=== PATIENT | male | born 1970 | race Caucasian/White ===

== ENCOUNTER 2023-03-29 21:52 | Inpatient (IN) | payer OTHER ==
[2023-03-29 22:07] VITALS: BMI 18.2
[2023-03-29 23:26] LABS: VENOUS BASE EXCESS 3.1 mmol/L (-2-2); VENOUS O2 SATURATION 73.2 % (70-80); VENOUS PCO2 49.3 mmHg (38-52); VENOUS PH 7.388 (7.310-7.410)
[2023-03-29 23:27] LABS: BASO % 0.5 % (0-2.0); EOS % 2.7 % (0-4.5); HEMATOCRIT 30.3 % (35.4-49); HEMOGLOBIN 9.6 GM/dL (11.7-16.9); LYMPH % 15.9 % (8-40); MCH 28.4 pg (25.7-33.7); MCHC 31.7 g/dl (32.0-35.9); MEAN CELL VOLUME 89.4 fl (80-96); MEAN PLT VOLUME 6.8 fl (7.5-11.1); NEUT % 73.9 % (42.8-82.8); PLATELET COUNT 329 10^3/uL (134-434); RBC 3.39 M/mm3 (4.00-5.60); RDW 15.7 % (11.9-15.9); WHITE BLOOD COUNT 11.7 K/mm3 (4.0-10.0)
[2023-03-29 23:36] LABS: INR 1.24 (0.83-1.09); PROTHROMBIN TIME (PATIENT) 14.3 SEC (9.7-13.0)
[2023-03-29 23:39] LABS: ACTIVATED PTT 38.5 SECONDS (25.2-36.5)
[2023-03-29 23:45] LABS: CHLORIDE 96 mmol/L (98-107); POTASSIUM 3.7 mmol/L (3.5-5.1); SODIUM 134 mmol/L (136-145)
[2023-03-29 23:48] LABS: ALBUMIN 2.2 g/dl (3.4-5.0); ANION GAP 10 MMOL/L (8-16); CO2 28 mmol/L (21-32); GLUCOSE,RANDOM 93 mg/dL (74-106)
[2023-03-29 23:50] LABS: MAGNESIUM 3.4 mg/dL (1.8-2.4); SGPT/ALT 67 U/L (13-61)
[2023-03-29 23:51] LABS: CREATININE 5.2 mg/dL (0.55-1.3); PHOSPHOROUS 3.5 mg/dL (2.5-4.9); SGOT/AST 38 U/L (15-37)
[2023-03-29 23:52] LABS: BILIRUBIN,TOTAL 0.4 mg/dL (0.2-1); TOT PROT 7.5 g/dl (6.4-8.2)
[2023-03-29 23:54] LABS: ALK PHOS 216 U/L (45-117)
[2023-03-30 00:03] LABS: BLOOD UREA NITROGEN 129.5 mg/dL (7-18)
[2023-03-30] MEDS ORDERED: SODIUM HYPOCHLORITE 0.5% 473 ML- BULK BOTTLE TP PRN (03:32)
[2023-03-30] MEDS ORDERED: MAGNESIUM HYDROX 2400MG/30ML ORAL SUSPENSION 30 ML CUP PEG PRN (03:32)
[2023-03-30] MEDS ORDERED: BISACODYL 10 MG SUPP.RECT PR PRN (03:32)
[2023-03-30] MEDS ORDERED: SILVER SULFADIAZINE 1% TOP CREAM 50 GM JAR TP PRN (03:32)
[2023-03-30] MEDS ORDERED: ACETAMINOPHEN 650 MG/20.3 ML ORAL SOLUTION (CUPS) PEG PRN (04:16)
[2023-03-30] MEDS: hydrALAZINE HCL 25 MG TABLET (FP) GT SCH ×3 (06:39→22:12)
[2023-03-30 08:27] LABS: BASO % 0.5 % (0-2.0); EOS % 2.3 % (0-4.5); HEMATOCRIT 30.8 % (35.4-49); HEMOGLOBIN 9.8 GM/dL (11.7-16.9); LYMPH % 17.6 % (8-40); MCH 28.5 pg (25.7-33.7); MCHC 31.9 g/dl (32.0-35.9); MEAN CELL VOLUME 89.5 fl (80-96); MONO % 7.9 % (3.8-10.2); NEUT % 71.7 % (42.8-82.8); PLATELET COUNT 326 10^3/uL (134-434); RBC 3.44 M/mm3 (4.00-5.60); RDW 15.6 % (11.9-15.9); WHITE BLOOD COUNT 11.3 K/mm3 (4.0-10.0)
[2023-03-30 08:47] LABS: CHLORIDE 98 mmol/L (98-107); POTASSIUM 3.8 mmol/L (3.5-5.1); SODIUM 136 mmol/L (136-145)
[2023-03-30 08:50] LABS: ALBUMIN 2.1 g/dl (3.4-5.0); ANION GAP 11 MMOL/L (8-16); CO2 26 mmol/L (21-32); GLUCOSE,RANDOM 83 mg/dL (74-106)
[2023-03-30 08:51] LABS: MAGNESIUM 3.5 mg/dL (1.8-2.4)
[2023-03-30 08:53] LABS: CREATININE 5.6 mg/dL (0.55-1.3); PHOSPHOROUS 3.9 mg/dL (2.5-4.9); SGPT/ALT 56 U/L (13-61)
[2023-03-30 08:54] LABS: SGOT/AST 25 U/L (15-37)
[2023-03-30 08:55] LABS: BILIRUBIN,TOTAL 0.5 mg/dL (0.2-1); TOT PROT 7.2 g/dl (6.4-8.2)
[2023-03-30 08:57] LABS: ALK PHOS 172 U/L (45-117); BLOOD UREA NITROGEN 139.5 mg/dL (7-18)
[2023-03-30] MEDS: ZINC SULFATE 220 MG CAPSULE (FP) GT SCH ×4 (09:51→22:11)
[2023-03-30] MEDS: CARVEDILOL 25 MG TABLET (FP) GT SCH ×2 (09:51→22:11)
[2023-03-30] MEDS: ARTIFICIAL TEARS (POLYVINYL ALCOHOL) OPTH DROPS OU SCH ×2 (09:51→22:12)
[2023-03-30] MEDS: ISOSORBIDE DINITRATE 10 MG TABLET GT SCH ×3 (09:51→17:27)
[2023-03-30] MEDS: COLLAGENASE CLOSTRIDIUM HIST. 30 GRAMS TUBE TP SCH (09:52)
[2023-03-30] MEDS: FERROUS SO4 300 MG/5 ML ORAL SOLN UNIT DOSE CUPS PEG SCH (12:03)
[2023-03-30 12:59] LABS: ERYTHROCYTE SEDIMENTATION RATE 107 mm/hr (0-20)
[2023-03-30] MEDS ORDERED: SODIUM CHLORIDE 250 ML IV PRN (13:14)
[2023-03-30] MEDS: FAMOTIDINE 40 MG/5 ML ORAL SUSPENSION PEG SCH (13:14)
[2023-03-30] MEDS: ALTEPLASE (CATHFLO) 2 MG/2 ML VIAL NR ONE ×2 (13:30→13:35)
[2023-03-30] MEDS: ASCORBIC ACID 250 MG TABLET (FP) PEG SCH (22:11)
[2023-03-31] MEDS: hydrALAZINE HCL 25 MG TABLET (FP) GT SCH ×3 (05:50→21:05)
[2023-03-31 07:39] LABS: HEMATOCRIT 29.5 % (35.4-49); HEMOGLOBIN 9.9 GM/dL (11.7-16.9); MCH 30.3 pg (25.7-33.7); MCHC 33.5 g/dl (32.0-35.9); MEAN CELL VOLUME 90.4 fl (80-96); MEAN PLT VOLUME 7.3 fl (7.5-11.1); PLATELET COUNT 329 10^3/uL (134-434); RBC 3.26 M/mm3 (4.00-5.60); RDW 15.8 % (11.9-15.9); WHITE BLOOD COUNT 10.7 K/mm3 (4.0-10.0)
[2023-03-31 07:58] LABS: POTASSIUM 3.5 mmol/L (3.5-5.1)
[2023-03-31 08:07] LABS: MAGNESIUM 2.7 mg/dL (1.8-2.4)
[2023-03-31 08:10] LABS: CREATININE 3.6 mg/dL (0.55-1.3); PHOSPHOROUS 2.8 mg/dL (2.5-4.9)
[2023-03-31 08:15] LABS: BILIRUBIN,TOTAL 0.4 mg/dL (0.2-1); BLOOD UREA NITROGEN 67.3 mg/dL (7-18); CALCIUM 9.8 mg/dL (8.5-10.1)
[2023-03-31] MEDS ORDERED: EPOETIN ALFA-EPBX 3,000 UNIT/ML VIAL IVPUSH ONE (09:00)
[2023-03-31] MEDS: ISOSORBIDE DINITRATE 10 MG TABLET GT SCH ×3 (09:30→17:52)
[2023-03-31] MEDS: ZINC SULFATE 220 MG CAPSULE (FP) GT SCH ×4 (09:30→21:07)
[2023-03-31] MEDS: FAMOTIDINE 40 MG/5 ML ORAL SUSPENSION PEG SCH (09:30)
[2023-03-31] MEDS: CARVEDILOL 25 MG TABLET (FP) GT SCH ×2 (09:30→21:05)
[2023-03-31] MEDS: FERROUS SO4 300 MG/5 ML ORAL SOLN UNIT DOSE CUPS PEG SCH (09:31)
[2023-03-31] MEDS: ARTIFICIAL TEARS (POLYVINYL ALCOHOL) OPTH DROPS OU SCH ×2 (09:37→21:09)
[2023-03-31] MEDS ORDERED: SODIUM CHLORIDE 250 ML IV PRN (11:33)
[2023-03-31] MEDS: COLLAGENASE CLOSTRIDIUM HIST. 30 GRAMS TUBE TP SCH (12:07)
[2023-03-31] MEDS: ASCORBIC ACID 250 MG TABLET (FP) PEG SCH (21:08)
[2023-04-01] MEDS: hydrALAZINE HCL 25 MG TABLET (FP) GT SCH ×3 (05:53→22:19)
[2023-04-01 07:41] LABS: BASO % 0.6 % (0-2.0); EOS % 3.5 % (0-4.5); HEMATOCRIT 27.3 % (35.4-49); INR 1.27 (0.83-1.09); MCHC 33.1 g/dl (32.0-35.9); MEAN CELL VOLUME 90.6 fl (80-96); MEAN PLT VOLUME 7.5 fl (7.5-11.1); MONO % 6.7 % (3.8-10.2); NEUT % 73.2 % (42.8-82.8); PLATELET COUNT 337 10^3/uL (134-434); PROTHROMBIN TIME (PATIENT) 14.7 SEC (9.7-13.0); RBC 3.01 M/mm3 (4.00-5.60); RDW 15.8 % (11.9-15.9); WHITE BLOOD COUNT 11.4 K/mm3 (4.0-10.0)
[2023-04-01 07:44] LABS: ACTIVATED PTT 36.2 SECONDS (25.2-36.5)
[2023-04-01 07:53] LABS: POTASSIUM 3.8 mmol/L (3.5-5.1)
[2023-04-01 08:00] LABS: CALCIUM 10.2 mg/dL (8.5-10.1)
[2023-04-01 08:01] LABS: BLOOD UREA NITROGEN 91.4 mg/dL (7-18)
[2023-04-01 08:04] LABS: CREATININE 4.6 mg/dL (0.55-1.3)
[2023-04-01 08:05] LABS: TOT PROT 6.8 g/dl (6.4-8.2)
[2023-04-01 08:06] LABS: BILIRUBIN,TOTAL 0.3 mg/dL (0.2-1)
[2023-04-01] MEDS: ISOSORBIDE DINITRATE 10 MG TABLET GT SCH ×3 (08:24→18:21)
[2023-04-01] MEDS: ZINC SULFATE 220 MG CAPSULE (FP) GT SCH ×5 (10:00→22:19)
[2023-04-01] MEDS: FAMOTIDINE 40 MG/5 ML ORAL SUSPENSION PEG SCH (12:45)
[2023-04-01] MEDS: CARVEDILOL 25 MG TABLET (FP) GT SCH ×2 (12:46→22:19)
[2023-04-01] MEDS: FERROUS SO4 300 MG/5 ML ORAL SOLN UNIT DOSE CUPS PEG SCH (12:49)
[2023-04-01] MEDS: ARTIFICIAL TEARS (POLYVINYL ALCOHOL) OPTH DROPS OU SCH ×2 (12:52→22:20)
[2023-04-01] MEDS: PATIENT'S OWN MEDICATION (NON-FORMULARY) (Calcium Alginate [Kendall] 1 EACH Bandage) TP SCH ×3 (13:53→13:54)
[2023-04-01] MEDS: COLLAGENASE CLOSTRIDIUM HIST. 30 GRAMS TUBE TP SCH (17:53)
[2023-04-01] MEDS: ASCORBIC ACID 250 MG TABLET (FP) PEG SCH (22:19)
[2023-04-02] MEDS: hydrALAZINE HCL 25 MG TABLET (FP) GT SCH ×3 (06:12→21:39)
[2023-04-02 08:41] LABS: HEMATOCRIT 31.2 % (35.4-49); HEMOGLOBIN 9.8 GM/dL (11.7-16.9); MCH 28.5 pg (25.7-33.7); MCHC 31.5 g/dl (32.0-35.9); MEAN CELL VOLUME 90.7 fl (80-96); MEAN PLT VOLUME 6.8 fl (7.5-11.1); PLATELET COUNT 350 10^3/uL (134-434); RBC 3.44 M/mm3 (4.00-5.60); RDW 16.3 % (11.9-15.9); WHITE BLOOD COUNT 13.1 K/mm3 (4.0-10.0)
[2023-04-02 08:59] LABS: POTASSIUM 3.6 mmol/L (3.5-5.1)
[2023-04-02 09:04] LABS: CALCIUM 9.4 mg/dL (8.5-10.1)
[2023-04-02 09:05] LABS: ALBUMIN 2.2 g/dl (3.4-5.0); MAGNESIUM 2.6 mg/dL (1.8-2.4)
[2023-04-02 09:08] LABS: BILIRUBIN,TOTAL 0.3 mg/dL (0.2-1); CREATININE 3.3 mg/dL (0.55-1.3); PHOSPHOROUS 2.8 mg/dL (2.5-4.9); TOT PROT 7.3 g/dl (6.4-8.2)
[2023-04-02 09:15] LABS: BLOOD UREA NITROGEN 52.2 mg/dL (7-18)
[2023-04-02] MEDS ORDERED: GLYCOPYRROLATE 0.2 MG/1 ML VIAL ONE (09:36)
[2023-04-02] MEDS ORDERED: FAMOTIDINE 20 MG/2.5 ML ORAL LIQUID PEG SCH (10:00)
[2023-04-02] MEDS ORDERED: ONDANSETRON 4 MG/2 ML VIAL IVPUSH PRN ×2 (10:11→10:19)
[2023-04-02] MEDS ORDERED: MAGNESIUM HYDROX 2400MG/30ML ORAL SUSPENSION 30 ML CUP PEG PRN (10:19)
[2023-04-02] MEDS ORDERED: SODIUM HYPOCHLORITE 0.5% 473 ML- BULK BOTTLE TP PRN (10:19)
[2023-04-02] MEDS ORDERED: ACETAMINOPHEN 650 MG/20.3 ML ORAL SOLUTION (CUPS) PEG PRN (10:19)
[2023-04-02] MEDS ORDERED: BISACODYL 10 MG SUPP.RECT PR PRN (10:19)
[2023-04-02] MEDS ORDERED: SILVER SULFADIAZINE 1% TOP CREAM 50 GM JAR TP PRN (10:19)
[2023-04-02] MEDS: ARTIFICIAL TEARS (POLYVINYL ALCOHOL) OPTH DROPS OU SCH ×2 (11:58→21:47)
[2023-04-02] MEDS: ISOSORBIDE DINITRATE 10 MG TABLET GT SCH ×3 (11:58→17:01)
[2023-04-02] MEDS: CARVEDILOL 25 MG TABLET (FP) GT SCH ×2 (11:59→21:39)
[2023-04-02] MEDS: COLLAGENASE CLOSTRIDIUM HIST. 30 GRAMS TUBE TP SCH (11:59)
[2023-04-02] MEDS: ZINC SULFATE 220 MG CAPSULE (FP) GT SCH ×4 (11:59→21:38)
[2023-04-02] MEDS: FERROUS SO4 300 MG/5 ML ORAL SOLN UNIT DOSE CUPS PEG SCH (11:59)
[2023-04-02] MEDS: AMINO ACIDS/PROTEIN HYDROLYS 30 ML LIQUID.PKT PO SCH (17:01)
[2023-04-02] MEDS ORDERED: SODIUM CHLORIDE 250 ML IV PRN (21:41)
[2023-04-02] MEDS ORDERED: ASCORBIC ACID 250 MG TABLET (FP) PEG SCH (22:00)
[2023-04-03] MEDS: hydrALAZINE HCL 25 MG TABLET (FP) GT SCH ×3 (06:17→22:09)
[2023-04-03 06:31] LABS: HEMATOCRIT 28.8 % (35.4-49); HEMOGLOBIN 9.4 GM/dL (11.7-16.9); MCH 29.3 pg (25.7-33.7); MCHC 32.5 g/dl (32.0-35.9); MEAN CELL VOLUME 90.2 fl (80-96); MEAN PLT VOLUME 7.1 fl (7.5-11.1); PLATELET COUNT 373 10^3/uL (134-434); RBC 3.19 M/mm3 (4.00-5.60); WHITE BLOOD COUNT 12.9 K/mm3 (4.0-10.0)
[2023-04-03 06:41] LABS: POTASSIUM 3.9 mmol/L (3.5-5.1)
[2023-04-03 06:48] LABS: ALBUMIN 2.1 g/dl (3.4-5.0); CALCIUM 9.7 mg/dL (8.5-10.1)
[2023-04-03 06:49] LABS: CREATININE 4.3 mg/dL (0.55-1.3); MAGNESIUM 2.8 mg/dL (1.8-2.4)
[2023-04-03 06:50] LABS: BILIRUBIN,TOTAL 0.4 mg/dL (0.2-1)
[2023-04-03 06:52] LABS: PHOSPHOROUS 4.1 mg/dL (2.5-4.9)
[2023-04-03 06:55] LABS: BLOOD UREA NITROGEN 79.6 mg/dL (7-18)
[2023-04-03] MEDS ORDERED: EPOETIN ALFA-EPBX 4,000 UNIT/ML VIAL SQ ONE (08:00)
[2023-04-03] MEDS ORDERED: FAMOTIDINE 20 MG/2.5 ML ORAL LIQUID PEG SCH (10:00)
[2023-04-03] MEDS ORDERED: FERROUS SO4 300 MG/5 ML ORAL SOLN UNIT DOSE CUPS PEG SCH (10:00)
[2023-04-03] MEDS ORDERED: COLLAGENASE CLOSTRIDIUM HIST. 30 GRAMS TUBE TP SCH ×2 (10:00)
[2023-04-03] MEDS: ISOSORBIDE DINITRATE 10 MG TABLET GT SCH ×3 (12:10→19:33)
[2023-04-03] MEDS: ARTIFICIAL TEARS (POLYVINYL ALCOHOL) OPTH DROPS OU SCH ×2 (12:10→22:11)
[2023-04-03] MEDS: AMINO ACIDS/PROTEIN HYDROLYS 30 ML LIQUID.PKT PO SCH ×2 (12:10→19:32)
[2023-04-03] MEDS: MULTIVIT-MINERALS ORAL LIQUID PO SCH (12:11)
[2023-04-03] MEDS: CARVEDILOL 25 MG TABLET (FP) GT SCH ×2 (12:11→22:09)
[2023-04-03] MEDS: ZINC SULFATE 220 MG CAPSULE (FP) GT SCH ×4 (12:12→22:09)
[2023-04-03] MEDS ORDERED: ALBUTEROL SO4 2.5/IPRATROPIUM 0.5 INH SOL 3 ML VIAL.NEB. NEB PRN (15:00)
[2023-04-03] MEDS ORDERED: ACETAMINOPHEN 650 MG/20.3 ML ORAL SOLUTION (CUPS) PEG PRN (19:39)
[2023-04-03] MEDS ORDERED: MAGNESIUM HYDROX 2400MG/30ML ORAL SUSPENSION 30 ML CUP PEG PRN (19:39)
[2023-04-03] MEDS ORDERED: BISACODYL 10 MG SUPP.RECT PR PRN (19:39)
[2023-04-03] MEDS ORDERED: SILVER SULFADIAZINE 1% TOP CREAM 50 GM JAR TP PRN (19:39)
[2023-04-04] MEDS: hydrALAZINE HCL 25 MG TABLET (FP) GT SCH ×3 (06:32→23:50)
[2023-04-04] MEDS: ISOSORBIDE DINITRATE 10 MG TABLET GT SCH ×3 (08:40→18:10)
[2023-04-04 08:54] LABS: HEMATOCRIT 29.3 % (35.4-49); HEMOGLOBIN 9.6 GM/dL (11.7-16.9); MCH 29.7 pg (25.7-33.7); MCHC 32.7 g/dl (32.0-35.9); MEAN CELL VOLUME 90.7 fl (80-96); MEAN PLT VOLUME 7.1 fl (7.5-11.1); PLATELET COUNT 369 10^3/uL (134-434); RBC 3.22 M/mm3 (4.00-5.60); RDW 15.8 % (11.9-15.9); WHITE BLOOD COUNT 20.1 K/mm3 (4.0-10.0)
[2023-04-04 09:19] LABS: POTASSIUM 3.7 mmol/L (3.5-5.1)
[2023-04-04] MEDS: FERROUS SO4 300 MG/5 ML ORAL SOLN UNIT DOSE CUPS PEG SCH (09:19)
[2023-04-04] MEDS: CARVEDILOL 25 MG TABLET (FP) GT SCH ×2 (09:19→23:50)
[2023-04-04] MEDS: AMINO ACIDS/PROTEIN HYDROLYS 30 ML LIQUID.PKT PO SCH (09:19)
[2023-04-04] MEDS: ZINC SULFATE 220 MG CAPSULE (FP) GT SCH ×4 (09:19→23:49)
[2023-04-04] MEDS: MULTIVIT-MINERALS ORAL LIQUID PO SCH (09:20)
[2023-04-04 09:24] LABS: CALCIUM 10.2 mg/dL (8.5-10.1)
[2023-04-04 09:25] LABS: ALBUMIN 2.1 g/dl (3.4-5.0); BLOOD UREA NITROGEN 63.9 mg/dL (7-18); MAGNESIUM 2.7 mg/dL (1.8-2.4)
[2023-04-04 09:28] LABS: CREATININE 3.5 mg/dL (0.55-1.3); PHOSPHOROUS 2.6 mg/dL (2.5-4.9)
[2023-04-04 09:29] LABS: BILIRUBIN,TOTAL 0.3 mg/dL (0.2-1)
[2023-04-04 09:30] LABS: TOT PROT 7.4 g/dl (6.4-8.2)
[2023-04-04] MEDS: FAMOTIDINE 20 MG/2.5 ML ORAL LIQUID PEG SCH (09:52)
[2023-04-04] MEDS: ARTIFICIAL TEARS (POLYVINYL ALCOHOL) OPTH DROPS OU SCH ×2 (09:54→23:51)
[2023-04-04] MEDS ORDERED: MULTIVIT-MINERALS ORAL LIQUID GT SCH (10:07)
[2023-04-04] MEDS: COLLAGENASE CLOSTRIDIUM HIST. 30 GRAMS TUBE TP SCH (10:56)
[2023-04-04] MEDS: CEFTRIAXONE 1 GM in DEXTROSE 5%-WATER - 50 ML IVPB SCH (13:57)
[2023-04-04 14:51] LABS: ERYTHROCYTE SEDIMENTATION RATE 105 mm/hr (0-20)
[2023-04-04] MEDS: VITAMIN B COMP W-C 1 EA TABLET (NEPHRO-VITE) PO SCH (18:28)
[2023-04-04] MEDS: AMINO ACIDS/PROTEIN HYDROLYS 30 ML LIQUID.PKT GT SCH (18:29)
[2023-04-05] MEDS: hydrALAZINE HCL 25 MG TABLET (FP) GT SCH ×3 (06:07→21:28)
[2023-04-05] MEDS: ISOSORBIDE DINITRATE 10 MG TABLET GT SCH ×3 (08:50→18:00)
[2023-04-05] MEDS: AMINO ACIDS/PROTEIN HYDROLYS 30 ML LIQUID.PKT GT SCH ×2 (08:50→18:00)
[2023-04-05] MEDS: VITAMIN B COMP W-C 1 EA TABLET (NEPHRO-VITE) PO SCH (09:02)
[2023-04-05] MEDS: CARVEDILOL 25 MG TABLET (FP) GT SCH ×2 (09:03→21:26)
[2023-04-05] MEDS: ZINC SULFATE 220 MG CAPSULE (FP) GT SCH ×4 (09:03→21:26)
[2023-04-05] MEDS: ARTIFICIAL TEARS (POLYVINYL ALCOHOL) OPTH DROPS OU SCH ×2 (09:03→21:25)
[2023-04-05] MEDS: FAMOTIDINE 20 MG/2.5 ML ORAL LIQUID PEG SCH (09:04)
[2023-04-05] MEDS: CEFTRIAXONE 1 GM in DEXTROSE 5%-WATER - 50 ML IVPB SCH (09:06)
[2023-04-05] MEDS ORDERED: SODIUM CHLORIDE 250 ML IV PRN ×2 (09:22→11:26)
[2023-04-05] MEDS: COLLAGENASE CLOSTRIDIUM HIST. 30 GRAMS TUBE TP SCH (09:26)
[2023-04-05] MEDS: FERROUS SO4 300 MG/5 ML ORAL SOLN UNIT DOSE CUPS PEG SCH (09:26)
[2023-04-05 09:49] LABS: HEMATOCRIT 28.5 % (35.4-49); HEMOGLOBIN 9.3 GM/dL (11.7-16.9); MCH 29.3 pg (25.7-33.7); MCHC 32.5 g/dl (32.0-35.9); MEAN CELL VOLUME 90.2 fl (80-96); MEAN PLT VOLUME 6.9 fl (7.5-11.1); PLATELET COUNT 378 10^3/uL (134-434); RBC 3.16 M/mm3 (4.00-5.60); RDW 15.9 % (11.9-15.9); WHITE BLOOD COUNT 16.9 K/mm3 (4.0-10.0)
[2023-04-05] MEDS ORDERED: LIDOCAINE HCL 1%, 10 MG/ML (10ML VIAL) MDV ONE (09:51)
[2023-04-05 09:52] LABS: INR 1.24 (0.83-1.09); PROTHROMBIN TIME (PATIENT) 14.3 SEC (9.7-13.0)
[2023-04-05] MEDS ORDERED: HEPARIN NA (PORCINE) 5,000 UNITS/ML 1ML VIAL ONE (10:01)
[2023-04-05 10:10] LABS: POTASSIUM 4.4 mmol/L (3.5-5.1)
[2023-04-05 10:17] LABS: ALBUMIN 2.1 g/dl (3.4-5.0); MAGNESIUM 3.2 mg/dL (1.8-2.4)
[2023-04-05 10:18] LABS: CREATININE 4.6 mg/dL (0.55-1.3)
[2023-04-05 10:20] LABS: BILIRUBIN,TOTAL 0.3 mg/dL (0.2-1); PHOSPHOROUS 3.8 mg/dL (2.5-4.9); TOT PROT 7.2 g/dl (6.4-8.2)
[2023-04-05 10:24] LABS: BLOOD UREA NITROGEN 92.6 mg/dL (7-18)
[2023-04-05] MEDS ORDERED: ONDANSETRON 4 MG/2 ML VIAL IVPUSH PRN ×2 (10:30→11:26)
[2023-04-05] MEDS ORDERED: SODIUM CHLORIDE 1,000 ML IV SCH (10:30)
[2023-04-05] MEDS ORDERED: HEPARIN NA (PORCINE) 5,000 UNITS/ML 1ML VIAL SQ ONE (10:38)
[2023-04-05] MEDS ORDERED: LIDOCAINE HCL 1%, 10 MG/ML (20ML VIAL) INF ONE (10:38)
[2023-04-05] MEDS ORDERED: LACTATED RINGERS SOLUTION 1,000 ML IV SCH ×2 (11:15→11:26)
[2023-04-05] MEDS ORDERED: ACETAMINOPHEN 650 MG/20.3 ML ORAL SOLUTION (CUPS) PEG PRN (11:26)
[2023-04-05] MEDS ORDERED: MAGNESIUM HYDROX 2400MG/30ML ORAL SUSPENSION 30 ML CUP PEG PRN (11:26)
[2023-04-05] MEDS ORDERED: BISACODYL 10 MG SUPP.RECT PR PRN (11:26)
[2023-04-05] MEDS ORDERED: ALBUTEROL SO4 2.5/IPRATROPIUM 0.5 INH SOL 3 ML VIAL.NEB. NEB PRN (11:26)
[2023-04-05] MEDS ORDERED: SILVER SULFADIAZINE 1% TOP CREAM 50 GM JAR TP PRN (11:26)
[2023-04-06] MEDS: hydrALAZINE HCL 25 MG TABLET (FP) GT SCH ×3 (06:06→22:06)
[2023-04-06] MEDS: SODIUM CHLORIDE 1,000 ML IV SCH ×2 (06:15→15:40)
[2023-04-06 09:01] LABS: HEMATOCRIT 27.5 % (35.4-49); MCH 29.5 pg (25.7-33.7); MCHC 32.7 g/dl (32.0-35.9); MEAN CELL VOLUME 90.1 fl (80-96); MEAN PLT VOLUME 7.3 fl (7.5-11.1); PLATELET COUNT 352 10^3/uL (134-434); RBC 3.05 M/mm3 (4.00-5.60); RDW 15.7 % (11.9-15.9); WHITE BLOOD COUNT 12.2 K/mm3 (4.0-10.0)
[2023-04-06] MEDS: AMINO ACIDS/PROTEIN HYDROLYS 30 ML LIQUID.PKT GT SCH ×2 (09:14→18:13)
[2023-04-06] MEDS: ZINC SULFATE 220 MG CAPSULE (FP) GT SCH ×4 (09:15→22:06)
[2023-04-06] MEDS: VITAMIN B COMP W-C 1 EA TABLET (NEPHRO-VITE) PO SCH (09:15)
[2023-04-06] MEDS: CARVEDILOL 25 MG TABLET (FP) GT SCH ×2 (09:15→22:06)
[2023-04-06 09:24] LABS: POTASSIUM 3.5 mmol/L (3.5-5.1)
[2023-04-06 09:43] LABS: ALBUMIN 2.2 g/dl (3.4-5.0)
[2023-04-06 09:44] LABS: MAGNESIUM 2.6 mg/dL (1.8-2.4)
[2023-04-06 09:46] LABS: BILIRUBIN,TOTAL 0.6 mg/dL (0.2-1); CREATININE 2.9 mg/dL (0.55-1.3); PHOSPHOROUS 3.3 mg/dL (2.5-4.9)
[2023-04-06 09:48] LABS: TOT PROT 6.9 g/dl (6.4-8.2)
[2023-04-06 09:51] LABS: BLOOD UREA NITROGEN 51.1 mg/dL (7-18)
[2023-04-06] MEDS ORDERED: CEFTRIAXONE 1 GM in DEXTROSE 5%-WATER - 50 ML IVPB SCH (10:00)
[2023-04-06] MEDS ORDERED: COLLAGENASE CLOSTRIDIUM HIST. 30 GRAMS TUBE TP SCH (10:00)
[2023-04-06] MEDS: FERROUS SO4 300 MG/5 ML ORAL SOLN UNIT DOSE CUPS PEG SCH (11:08)
[2023-04-06] MEDS: ISOSORBIDE DINITRATE 10 MG TABLET GT SCH ×3 (11:12→18:13)
[2023-04-06] MEDS: FAMOTIDINE 20 MG/2.5 ML ORAL LIQUID PEG SCH (11:13)
[2023-04-06] MEDS: COLLAGENASE CLOSTRIDIUM HIST. 30 GRAMS TUBE TP SCH (11:15)
[2023-04-06] MEDS: ARTIFICIAL TEARS (POLYVINYL ALCOHOL) OPTH DROPS OU SCH ×2 (11:25→22:09)
[2023-04-06] MEDS: MEROPENEM 500 MG in DEXTROSE 5%-WATER 100 ML IVPB SCH (15:42)
[2023-04-07] MEDS: MEROPENEM 500 MG in DEXTROSE 5%-WATER 100 ML IVPB SCH ×3 (00:23→23:49)
[2023-04-07] MEDS: hydrALAZINE HCL 25 MG TABLET (FP) GT SCH ×3 (05:53→22:58)
[2023-04-07] MEDS ORDERED: MEROPENEM 500 MG in DEXTROSE 5%-WATER 100 ML IVPB SCH (07:15)
[2023-04-07 10:00] LABS: HEMATOCRIT 27.1 % (35.4-49); HEMOGLOBIN 8.7 GM/dL (11.7-16.9); MCH 28.9 pg (25.7-33.7); MCHC 32.1 g/dl (32.0-35.9); MEAN CELL VOLUME 89.9 fl (80-96); MEAN PLT VOLUME 7.2 fl (7.5-11.1); PLATELET COUNT 334 10^3/uL (134-434); RBC 3.01 M/mm3 (4.00-5.60); RDW 15.6 % (11.9-15.9); WHITE BLOOD COUNT 12.7 K/mm3 (4.0-10.0)
[2023-04-07] MEDS: ISOSORBIDE DINITRATE 10 MG TABLET GT SCH ×3 (10:10→17:21)
[2023-04-07] MEDS: CARVEDILOL 25 MG TABLET (FP) GT SCH ×2 (10:10→22:58)
[2023-04-07] MEDS: AMINO ACIDS/PROTEIN HYDROLYS 30 ML LIQUID.PKT GT SCH ×2 (10:10→17:21)
[2023-04-07] MEDS: VITAMIN B COMP W-C 1 EA TABLET (NEPHRO-VITE) PO SCH (10:10)
[2023-04-07] MEDS: ZINC SULFATE 220 MG CAPSULE (FP) GT SCH ×4 (10:10→22:58)
[2023-04-07] MEDS: FERROUS SO4 300 MG/5 ML ORAL SOLN UNIT DOSE CUPS PEG SCH (10:11)
[2023-04-07] MEDS: ARTIFICIAL TEARS (POLYVINYL ALCOHOL) OPTH DROPS OU SCH ×2 (10:12→22:58)
[2023-04-07] MEDS: COLLAGENASE CLOSTRIDIUM HIST. 30 GRAMS TUBE TP SCH (10:14)
[2023-04-07] MEDS: FAMOTIDINE 20 MG/2.5 ML ORAL LIQUID PEG SCH (10:17)
[2023-04-07 10:22] LABS: POTASSIUM 3.8 mmol/L (3.5-5.1)
[2023-04-07 10:29] LABS: CALCIUM 9.8 mg/dL (8.5-10.1)
[2023-04-07 10:30] LABS: ALBUMIN 2.1 g/dl (3.4-5.0); MAGNESIUM 2.9 mg/dL (1.8-2.4); PHOSPHOROUS 4.8 mg/dL (2.5-4.9)
[2023-04-07 10:32] LABS: BILIRUBIN,TOTAL 0.3 mg/dL (0.2-1); CREATININE 3.9 mg/dL (0.55-1.3); TOT PROT 6.8 g/dl (6.4-8.2)
[2023-04-07 10:39] LABS: BLOOD UREA NITROGEN 78.3 mg/dL (7-18)
[2023-04-08] MEDS: hydrALAZINE HCL 25 MG TABLET (FP) GT SCH ×3 (06:05→23:04)
[2023-04-08] MEDS ORDERED: EPOETIN ALFA-EPBX 4,000 UNIT/ML VIAL SQ ONE (09:15)
[2023-04-08] MEDS ORDERED: SODIUM CHLORIDE 250 ML IV PRN (09:17)
[2023-04-08 09:59] LABS: POTASSIUM 3.7 mmol/L (3.5-5.1)
[2023-04-08 10:22] LABS: CALCIUM 10.2 mg/dL (8.5-10.1)
[2023-04-08 10:23] LABS: MAGNESIUM 3.3 mg/dL (1.8-2.4)
[2023-04-08 10:25] LABS: CREATININE 4.6 mg/dL (0.55-1.3); PHOSPHOROUS 5.6 mg/dL (2.5-4.9)
[2023-04-08 10:28] LABS: BILIRUBIN,TOTAL 0.6 mg/dL (0.2-1); TOT PROT 7.3 g/dl (6.4-8.2)
[2023-04-08] MEDS: ISOSORBIDE DINITRATE 10 MG TABLET GT SCH ×3 (13:04→17:09)
[2023-04-08] MEDS: FERROUS SO4 300 MG/5 ML ORAL SOLN UNIT DOSE CUPS PEG SCH (13:04)
[2023-04-08] MEDS: AMINO ACIDS/PROTEIN HYDROLYS 30 ML LIQUID.PKT GT SCH ×2 (13:05→17:08)
[2023-04-08] MEDS: CARVEDILOL 25 MG TABLET (FP) GT SCH ×2 (13:05→23:04)
[2023-04-08] MEDS: VITAMIN B COMP W-C 1 EA TABLET (NEPHRO-VITE) PO SCH (13:05)
[2023-04-08] MEDS: ZINC SULFATE 220 MG CAPSULE (FP) GT SCH ×4 (13:05→23:04)
[2023-04-08] MEDS: MEROPENEM 500 MG in DEXTROSE 5%-WATER 100 ML IVPB SCH ×4 (13:06→23:03)
[2023-04-08] MEDS: FAMOTIDINE 20 MG/2.5 ML ORAL LIQUID PEG SCH (13:06)
[2023-04-08] MEDS: COLLAGENASE CLOSTRIDIUM HIST. 30 GRAMS TUBE TP SCH (13:07)
[2023-04-08] MEDS: ARTIFICIAL TEARS (POLYVINYL ALCOHOL) OPTH DROPS OU SCH ×2 (13:08→23:05)
[2023-04-08 15:14] LABS: HIV INTERPRETATION NEGATIVE (NEGATIVE)
[2023-04-08] MEDS ORDERED: VANCOMYCIN 1 GM/200 ML PREMIX BAG (RESTRICTED TO ID ONLY) IVPB ONE (16:33)
[2023-04-08 17:29] LABS: HEMATOCRIT 28.3 % (35.4-49); HEMOGLOBIN 9.3 GM/dL (11.7-16.9); MCHC 32.7 g/dl (32.0-35.9); MEAN CELL VOLUME 88.7 fl (80-96); MEAN PLT VOLUME 7.8 fl (7.5-11.1); PLATELET COUNT 341 10^3/uL (134-434); RBC 3.19 M/mm3 (4.00-5.60); RDW 15.7 % (11.9-15.9); WHITE BLOOD COUNT 12.8 K/mm3 (4.0-10.0)
[2023-04-09] MEDS: hydrALAZINE HCL 25 MG TABLET (FP) GT SCH ×3 (06:11→22:43)
[2023-04-09] MEDS: ISOSORBIDE DINITRATE 10 MG TABLET GT SCH ×3 (07:58→17:33)
[2023-04-09 09:42] LABS: HEMATOCRIT 24.7 % (35.4-49); HEMOGLOBIN 8.1 GM/dL (11.7-16.9); MCH 29.1 pg (25.7-33.7); MCHC 32.8 g/dl (32.0-35.9); MEAN CELL VOLUME 88.5 fl (80-96); MEAN PLT VOLUME 7.1 fl (7.5-11.1); PLATELET COUNT 314 10^3/uL (134-434); RBC 2.79 M/mm3 (4.00-5.60); RDW 15.6 % (11.9-15.9); WHITE BLOOD COUNT 13.1 K/mm3 (4.0-10.0)
[2023-04-09 10:00] LABS: POTASSIUM 3.9 mmol/L (3.5-5.1)
[2023-04-09 10:03] LABS: CALCIUM 9.3 mg/dL (8.5-10.1)
[2023-04-09 10:04] LABS: MAGNESIUM 2.7 mg/dL (1.8-2.4)
[2023-04-09 10:06] LABS: CREATININE 3.2 mg/dL (0.55-1.3)
[2023-04-09 10:08] LABS: BILIRUBIN,TOTAL 0.4 mg/dL (0.2-1); TOT PROT 6.6 g/dl (6.4-8.2)
[2023-04-09] MEDS: COLLAGENASE CLOSTRIDIUM HIST. 30 GRAMS TUBE TP SCH (10:15)
[2023-04-09 10:18] LABS: BLOOD UREA NITROGEN 59.2 mg/dL (7-18)
[2023-04-09] MEDS: AMINO ACIDS/PROTEIN HYDROLYS 30 ML LIQUID.PKT GT SCH ×2 (10:49→17:32)
[2023-04-09] MEDS: ZINC SULFATE 220 MG CAPSULE (FP) GT SCH ×4 (10:53→22:43)
[2023-04-09] MEDS: VITAMIN B COMP W-C 1 EA TABLET (NEPHRO-VITE) PO SCH (10:54)
[2023-04-09] MEDS: FAMOTIDINE 20 MG/2.5 ML ORAL LIQUID PEG SCH (10:54)
[2023-04-09] MEDS: FERROUS SO4 300 MG/5 ML ORAL SOLN UNIT DOSE CUPS PEG SCH (10:54)
[2023-04-09] MEDS: CARVEDILOL 25 MG TABLET (FP) GT SCH ×2 (10:54→22:43)
[2023-04-09] MEDS: ARTIFICIAL TEARS (POLYVINYL ALCOHOL) OPTH DROPS OU SCH ×2 (10:55→22:45)
[2023-04-09] MEDS: MEROPENEM 500 MG in DEXTROSE 5%-WATER 100 ML IVPB SCH (11:08)
[2023-04-10] MEDS: hydrALAZINE HCL 25 MG TABLET (FP) GT SCH ×3 (06:58→23:30)
[2023-04-10 08:08] LABS: HEMATOCRIT 26.7 % (35.4-49); HEMOGLOBIN 8.5 GM/dL (11.7-16.9); MCH 28.5 pg (25.7-33.7); MCHC 31.8 g/dl (32.0-35.9); MEAN CELL VOLUME 89.7 fl (80-96); MEAN PLT VOLUME 7.1 fl (7.5-11.1); PLATELET COUNT 336 10^3/uL (134-434); RBC 2.98 M/mm3 (4.00-5.60); RDW 15.6 % (11.9-15.9); WHITE BLOOD COUNT 12.3 K/mm3 (4.0-10.0)
[2023-04-10 08:34] LABS: BLOOD UREA NITROGEN 81.6 mg/dL (7-18); CALCIUM 9.7 mg/dL (8.5-10.1)
[2023-04-10 08:37] LABS: CREATININE 4.1 mg/dL (0.55-1.3)
[2023-04-10 08:39] LABS: BILIRUBIN,TOTAL 0.4 mg/dL (0.2-1); TOT PROT 6.8 g/dl (6.4-8.2)
[2023-04-10] MEDS: ISOSORBIDE DINITRATE 10 MG TABLET GT SCH ×3 (09:04→17:27)
[2023-04-10] MEDS: AMINO ACIDS/PROTEIN HYDROLYS 30 ML LIQUID.PKT GT SCH ×2 (09:04→16:51)
[2023-04-10] MEDS: ARTIFICIAL TEARS (POLYVINYL ALCOHOL) OPTH DROPS OU SCH ×2 (10:21→23:30)
[2023-04-10] MEDS: COLLAGENASE CLOSTRIDIUM HIST. 30 GRAMS TUBE TP SCH (10:22)
[2023-04-10] MEDS ORDERED: SODIUM CHLORIDE 250 ML IV PRN ×2 (11:36→11:40)
[2023-04-10] MEDS ORDERED: EPOETIN ALFA-EPBX 4,000 UNIT/ML VIAL SQ ONE (11:38)
[2023-04-10] MEDS: FERROUS SO4 300 MG/5 ML ORAL SOLN UNIT DOSE CUPS PEG SCH (16:22)
[2023-04-10] MEDS: ZINC SULFATE 220 MG CAPSULE (FP) GT SCH ×4 (16:23→23:29)
[2023-04-10] MEDS: FAMOTIDINE 20 MG/2.5 ML ORAL LIQUID PEG SCH (16:24)
[2023-04-10] MEDS: CARVEDILOL 25 MG TABLET (FP) GT SCH ×2 (16:24→23:29)
[2023-04-10] MEDS: VITAMIN B COMP W-C 1 EA TABLET (NEPHRO-VITE) PO SCH (16:24)
[2023-04-11] MEDS: hydrALAZINE HCL 25 MG TABLET (FP) GT SCH ×4 (06:39→21:54)
[2023-04-11 07:50] LABS: INR 1.25 (0.83-1.09); PROTHROMBIN TIME (PATIENT) 14.5 SEC (9.7-13.0)
[2023-04-11 07:53] LABS: ACTIVATED PTT 40.2 SECONDS (25.2-36.5)
[2023-04-11 08:05] LABS: POTASSIUM 3.8 mmol/L (3.5-5.1)
[2023-04-11 08:14] LABS: HEMATOCRIT 28.5 % (35.4-49); HEMOGLOBIN 9.3 GM/dL (11.7-16.9); MCH 29.7 pg (25.7-33.7); MCHC 32.7 g/dl (32.0-35.9); MEAN CELL VOLUME 90.9 fl (80-96); MEAN PLT VOLUME 7.4 fl (7.5-11.1); PLATELET COUNT 346 10^3/uL (134-434); RBC 3.14 M/mm3 (4.00-5.60); RDW 15.6 % (11.9-15.9); WHITE BLOOD COUNT 10.6 K/mm3 (4.0-10.0)
[2023-04-11] MEDS: AMINO ACIDS/PROTEIN HYDROLYS 30 ML LIQUID.PKT GT SCH ×2 (08:14→17:41)
[2023-04-11] MEDS: ISOSORBIDE DINITRATE 10 MG TABLET GT SCH ×4 (08:15→17:40)
[2023-04-11 08:23] LABS: CALCIUM 10.1 mg/dL (8.5-10.1)
[2023-04-11 08:24] LABS: ALBUMIN 2.1 g/dl (3.4-5.0); MAGNESIUM 2.7 mg/dL (1.8-2.4)
[2023-04-11 08:27] LABS: BILIRUBIN,TOTAL 0.5 mg/dL (0.2-1); CREATININE 2.8 mg/dL (0.55-1.3); PHOSPHOROUS 4.2 mg/dL (2.5-4.9)
[2023-04-11 08:47] LABS: BLOOD UREA NITROGEN 45.7 mg/dL (7-18)
[2023-04-11] MEDS: ARTIFICIAL TEARS (POLYVINYL ALCOHOL) OPTH DROPS OU SCH ×2 (09:59→21:55)
[2023-04-11] MEDS: VITAMIN B COMP W-C 1 EA TABLET (NEPHRO-VITE) PO SCH (10:14)
[2023-04-11] MEDS: CARVEDILOL 25 MG TABLET (FP) GT SCH ×2 (10:14→21:53)
[2023-04-11] MEDS: ZINC SULFATE 220 MG CAPSULE (FP) GT SCH ×4 (10:14→21:53)
[2023-04-11] MEDS: FAMOTIDINE 20 MG/2.5 ML ORAL LIQUID PEG SCH (10:16)
[2023-04-11] MEDS: FERROUS SO4 300 MG/5 ML ORAL SOLN UNIT DOSE CUPS PEG SCH (10:16)
[2023-04-11] MEDS: COLLAGENASE CLOSTRIDIUM HIST. 30 GRAMS TUBE TP SCH (10:19)
[2023-04-11] MEDS ORDERED: LIDOCAINE HCL 1%, 10 MG/ML (20ML VIAL) NR ONE (13:08)
[2023-04-11] MEDS ORDERED: LIDOCAINE HCL 1%, 10 MG/ML (10ML VIAL) MDV ONE (14:17)
[2023-04-11] MEDS ORDERED: BUPIVACAINE HCL/PF 0.5% (5MG/ML) 10 ML VIAL ONE (14:18)
[2023-04-11] MEDS ORDERED: SILVER SULFADIAZINE 1% TOP CREAM 50 GM JAR TP PRN (15:40)
[2023-04-11] MEDS ORDERED: ALBUTEROL SO4 2.5/IPRATROPIUM 0.5 INH SOL 3 ML VIAL.NEB. NEB PRN (15:40)
[2023-04-11] MEDS ORDERED: ACETAMINOPHEN 650 MG/20.3 ML ORAL SOLUTION (CUPS) PEG PRN (15:40)
[2023-04-11] MEDS ORDERED: SODIUM CHLORIDE 250 ML IV PRN (15:40)
[2023-04-11] MEDS ORDERED: EPOETIN ALFA-EPBX 4,000 UNIT/ML VIAL SQ ONE (15:40)
[2023-04-11] MEDS ORDERED: BISACODYL 10 MG SUPP.RECT PR PRN (15:40)
[2023-04-11] MEDS ORDERED: MEROPENEM 500 MG VIAL (RESTRICTED TO ID) IVPB ONE (16:18)
[2023-04-11] MEDS: MEROPENEM 500 MG in DEXTROSE 5%-WATER 100 ML IVPB SCH (16:20)
[2023-04-12] MEDS: MEROPENEM 500 MG in DEXTROSE 5%-WATER 100 ML IVPB SCH ×2 (03:53→23:32)
[2023-04-12] MEDS: hydrALAZINE HCL 25 MG TABLET (FP) GT SCH ×3 (06:39→23:34)
[2023-04-12 08:39] LABS: HEMOGLOBIN 8.9 GM/dL (11.7-16.9); MCH 29.9 pg (25.7-33.7); MEAN CELL VOLUME 90.6 fl (80-96); MEAN PLT VOLUME 7.4 fl (7.5-11.1); PLATELET COUNT 334 10^3/uL (134-434); RBC 2.98 M/mm3 (4.00-5.60); RDW 15.8 % (11.9-15.9); WHITE BLOOD COUNT 10.8 K/mm3 (4.0-10.0)
[2023-04-12 08:44] LABS: POTASSIUM 4.3 mmol/L (3.5-5.1)
[2023-04-12] MEDS ORDERED: HEPARIN NA (PORCINE) 5,000 UNITS/ML 1ML VIAL ONE (08:52)
[2023-04-12] MEDS ORDERED: LIDOCAINE HCL 1%, 10 MG/ML (10ML VIAL) MDV ONE (08:53)
[2023-04-12 08:54] LABS: BLOOD UREA NITROGEN 69.4 mg/dL (7-18); MAGNESIUM 2.9 mg/dL (1.8-2.4)
[2023-04-12 08:57] LABS: CREATININE 3.7 mg/dL (0.55-1.3)
[2023-04-12 08:58] LABS: TOT PROT 6.7 g/dl (6.4-8.2)
[2023-04-12 08:59] LABS: BILIRUBIN,TOTAL 0.5 mg/dL (0.2-1)
[2023-04-12] MEDS ORDERED: MIDAZOLAM HCL 2 MG/2 ML SINGLE DOSE VIAL ONE (09:49)
[2023-04-12] MEDS ORDERED: ceFAZolin SODIUM 1 GM VIAL ONE ×2 (09:53→10:35)
[2023-04-12] MEDS ORDERED: ceFAZolin SODIUM 1 GM VIAL IVPB ONE (09:53)
[2023-04-12] MEDS ORDERED: VITAMIN B COMP W-C 1 EA TABLET (NEPHRO-VITE) GT SCH (10:00)
[2023-04-12] MEDS ORDERED: FAMOTIDINE 20 MG/2.5 ML ORAL LIQUID PEG SCH (10:00)
[2023-04-12] MEDS ORDERED: FERROUS SO4 300 MG/5 ML ORAL SOLN UNIT DOSE CUPS PEG SCH (10:00)
[2023-04-12] MEDS ORDERED: LIDOCAINE HCL 1%, 10 MG/ML (20ML VIAL) INF ONE ×2 (10:11)
[2023-04-12] MEDS: ARTIFICIAL TEARS (POLYVINYL ALCOHOL) OPTH DROPS OU SCH ×2 (11:06→23:33)
[2023-04-12] MEDS: CARVEDILOL 25 MG TABLET (FP) GT SCH ×2 (11:07→23:34)
[2023-04-12] MEDS: ISOSORBIDE DINITRATE 10 MG TABLET GT SCH ×3 (11:07→19:00)
[2023-04-12] MEDS: AMINO ACIDS/PROTEIN HYDROLYS 30 ML LIQUID.PKT GT SCH ×3 (11:07→19:00)
[2023-04-12] MEDS: ZINC SULFATE 220 MG CAPSULE (FP) GT SCH ×4 (11:08→23:33)
[2023-04-12] MEDS ORDERED: SODIUM CHLORIDE 250 ML IV PRN (11:45)
[2023-04-12] MEDS ORDERED: ACETAMINOPHEN 650 MG/20.3 ML ORAL SOLUTION (CUPS) PEG PRN (11:45)
[2023-04-12] MEDS ORDERED: SILVER SULFADIAZINE 1% TOP CREAM 50 GM JAR TP PRN (11:45)
[2023-04-12] MEDS ORDERED: ALBUTEROL SO4 2.5/IPRATROPIUM 0.5 INH SOL 3 ML VIAL.NEB. NEB PRN (11:45)
[2023-04-12] MEDS ORDERED: BISACODYL 10 MG SUPP.RECT PR PRN (11:45)
[2023-04-12] MEDS ORDERED: MEROPENEM 500 MG in DEXTROSE 5%-WATER 100 ML IVPB SCH (15:45)
[2023-04-12] MEDS ORDERED: EPOETIN ALFA-EPBX 4,000 UNIT/ML VIAL SQ ONE (17:00)
[2023-04-12] MEDS ORDERED: MEROPENEM 500 MG VIAL (RESTRICTED TO ID) IVPB ONE (21:35)
[2023-04-13] MEDS: hydrALAZINE HCL 25 MG TABLET (FP) GT SCH ×3 (05:16→22:01)
[2023-04-13] MEDS: MEROPENEM 500 MG in DEXTROSE 5%-WATER 100 ML IVPB SCH ×2 (05:17→20:46)
[2023-04-13 09:22] LABS: HEMATOCRIT 25.2 % (35.4-49); HEMOGLOBIN 8.2 GM/dL (11.7-16.9); MCH 29.4 pg (25.7-33.7); MCHC 32.4 g/dl (32.0-35.9); MEAN CELL VOLUME 90.9 fl (80-96); MEAN PLT VOLUME 6.9 fl (7.5-11.1); PLATELET COUNT 286 10^3/uL (134-434); RBC 2.78 M/mm3 (4.00-5.60); RDW 15.9 % (11.9-15.9); WHITE BLOOD COUNT 9.2 K/mm3 (4.0-10.0)
[2023-04-13 09:47] LABS: POTASSIUM 3.5 mmol/L (3.5-5.1)
[2023-04-13 10:03] LABS: ALBUMIN 2.2 g/dl (3.4-5.0); CALCIUM 9.5 mg/dL (8.5-10.1); MAGNESIUM 2.5 mg/dL (1.8-2.4)
[2023-04-13 10:06] LABS: PHOSPHOROUS 3.2 mg/dL (2.5-4.9)
[2023-04-13 10:07] LABS: CREATININE 2.4 mg/dL (0.55-1.3)
[2023-04-13 10:08] LABS: BILIRUBIN,TOTAL 0.3 mg/dL (0.2-1); TOT PROT 6.6 g/dl (6.4-8.2)
[2023-04-13] MEDS: CARVEDILOL 25 MG TABLET (FP) GT SCH ×2 (10:09→22:01)
[2023-04-13] MEDS: ISOSORBIDE DINITRATE 10 MG TABLET GT SCH ×3 (10:09→17:37)
[2023-04-13] MEDS: ZINC SULFATE 220 MG CAPSULE (FP) GT SCH ×4 (10:09→22:01)
[2023-04-13] MEDS: VITAMIN B COMP W-C 1 EA TABLET (NEPHRO-VITE) GT SCH (10:09)
[2023-04-13] MEDS: FERROUS SO4 300 MG/5 ML ORAL SOLN UNIT DOSE CUPS PEG SCH (10:09)
[2023-04-13] MEDS: AMINO ACIDS/PROTEIN HYDROLYS 30 ML LIQUID.PKT GT SCH ×2 (10:10→17:37)
[2023-04-13] MEDS: FAMOTIDINE 20 MG/2.5 ML ORAL LIQUID PEG SCH (10:10)
[2023-04-13] MEDS: ARTIFICIAL TEARS (POLYVINYL ALCOHOL) OPTH DROPS OU SCH ×2 (10:11→22:02)
[2023-04-13] MEDS ORDERED: MEROPENEM 500 MG VIAL (RESTRICTED TO ID) IVPB ONE (20:39)
[2023-04-14] MEDS: hydrALAZINE HCL 25 MG TABLET (FP) GT SCH ×3 (05:42→21:10)
[2023-04-14] MEDS: AMINO ACIDS/PROTEIN HYDROLYS 30 ML LIQUID.PKT GT SCH ×2 (08:20→17:34)
[2023-04-14] MEDS: ISOSORBIDE DINITRATE 10 MG TABLET GT SCH ×3 (08:20→17:34)
[2023-04-14 09:57] LABS: HEMATOCRIT 24.8 % (35.4-49); HEMOGLOBIN 7.7 GM/dL (11.7-16.9); MCH 28.6 pg (25.7-33.7); MCHC 31.3 g/dl (32.0-35.9); MEAN CELL VOLUME 91.6 fl (80-96); PLATELET COUNT 283 10^3/uL (134-434); RBC 2.71 M/mm3 (4.00-5.60); RDW 16.3 % (11.9-15.9)
[2023-04-14] MEDS: VITAMIN B COMP W-C 1 EA TABLET (NEPHRO-VITE) GT SCH (09:57)
[2023-04-14] MEDS: FERROUS SO4 300 MG/5 ML ORAL SOLN UNIT DOSE CUPS PEG SCH (09:57)
[2023-04-14] MEDS: ZINC SULFATE 220 MG CAPSULE (FP) GT SCH ×4 (09:57→21:09)
[2023-04-14] MEDS: CARVEDILOL 25 MG TABLET (FP) GT SCH ×2 (09:57→21:10)
[2023-04-14] MEDS: ARTIFICIAL TEARS (POLYVINYL ALCOHOL) OPTH DROPS OU SCH ×2 (09:58→21:10)
[2023-04-14] MEDS: FAMOTIDINE 20 MG/2.5 ML ORAL LIQUID PEG SCH (09:58)
[2023-04-14 10:21] LABS: ALBUMIN 2.3 g/dl (3.4-5.0)
[2023-04-14 10:23] LABS: PHOSPHOROUS 4.8 mg/dL (2.5-4.9)
[2023-04-14 10:24] LABS: CREATININE 3.6 mg/dL (0.55-1.3)
[2023-04-14 10:25] LABS: BILIRUBIN,TOTAL 0.3 mg/dL (0.2-1); TOT PROT 6.8 g/dl (6.4-8.2)
[2023-04-14] MEDS: MEROPENEM 500 MG in DEXTROSE 5%-WATER 100 ML IVPB SCH (20:08)
[2023-04-14] MEDS: COLLAGENASE CLOSTRIDIUM HIST. 30 GRAMS TUBE TP SCH (21:10)
[2023-04-15] MEDS: hydrALAZINE HCL 25 MG TABLET (FP) GT SCH ×3 (05:43→21:51)
[2023-04-15] MEDS: AMINO ACIDS/PROTEIN HYDROLYS 30 ML LIQUID.PKT GT SCH ×2 (08:33→18:45)
[2023-04-15] MEDS: ISOSORBIDE DINITRATE 10 MG TABLET GT SCH ×3 (08:33→18:19)
[2023-04-15] MEDS: CARVEDILOL 25 MG TABLET (FP) GT SCH ×2 (12:19→21:51)
[2023-04-15] MEDS: COLLAGENASE CLOSTRIDIUM HIST. 30 GRAMS TUBE TP SCH (12:19)
[2023-04-15] MEDS: ARTIFICIAL TEARS (POLYVINYL ALCOHOL) OPTH DROPS OU SCH ×2 (12:20→21:52)
[2023-04-15] MEDS: VITAMIN B COMP W-C 1 EA TABLET (NEPHRO-VITE) GT SCH (12:22)
[2023-04-15] MEDS: ZINC SULFATE 220 MG CAPSULE (FP) GT SCH ×4 (12:22→21:51)
[2023-04-15] MEDS: FAMOTIDINE 20 MG/2.5 ML ORAL LIQUID PEG SCH (12:22)
[2023-04-15] MEDS: FERROUS SO4 300 MG/5 ML ORAL SOLN UNIT DOSE CUPS PEG SCH (12:22)
[2023-04-15 16:01] LABS: HEMATOCRIT 21.1 % (35.4-49); MCH 29.2 pg (25.7-33.7); MCHC 32.5 g/dl (32.0-35.9); MEAN CELL VOLUME 89.9 fl (80-96); MEAN PLT VOLUME 7.4 fl (7.5-11.1); PLATELET COUNT 253 10^3/uL (134-434); RBC 2.35 M/mm3 (4.00-5.60); WHITE BLOOD COUNT 17.9 K/mm3 (4.0-10.0)
[2023-04-15 16:02] LABS: HEMOGLOBIN 6.9 GM/dL (11.7-16.9); POTASSIUM 3.8 mmol/L (3.5-5.1)
[2023-04-15 16:04] LABS: CALCIUM 9.6 mg/dL (8.5-10.1)
[2023-04-15 16:05] LABS: BLOOD UREA NITROGEN 82.8 mg/dL (7-18)
[2023-04-15 16:08] LABS: PHOSPHOROUS 4.6 mg/dL (2.5-4.9)
[2023-04-15 16:09] LABS: BILIRUBIN,TOTAL 0.7 mg/dL (0.2-1)
[2023-04-15 16:10] LABS: TOT PROT 6.4 g/dl (6.4-8.2)
[2023-04-15] MEDS ORDERED: EPOETIN ALFA-EPBX 4,000 UNIT/ML VIAL IVPUSH ONE (17:00)
[2023-04-15] MEDS ORDERED: EPOETIN ALFA-EPBX 3,000 UNIT/ML VIAL IVPUSH ONE (17:00)
[2023-04-15] MEDS: MEROPENEM 500 MG in DEXTROSE 5%-WATER 100 ML IVPB SCH (21:51)
[2023-04-16] MEDS: hydrALAZINE HCL 25 MG TABLET (FP) GT SCH ×3 (06:07→22:25)
[2023-04-16 08:47] LABS: BASO % 0.4 % (0-2.0); EOS % 3.2 % (0-4.5); HEMATOCRIT 24.3 % (35.4-49); HEMOGLOBIN 7.7 GM/dL (11.7-16.9); LYMPH % 12.7 % (8-40); MCHC 31.8 g/dl (32.0-35.9); MEAN PLT VOLUME 7.6 fl (7.5-11.1); MONO % 4.6 % (3.8-10.2); NEUT % 79.1 % (42.8-82.8); PLATELET COUNT 290 10^3/uL (134-434); RBC 2.67 M/mm3 (4.00-5.60); RDW 15.7 % (11.9-15.9); WHITE BLOOD COUNT 13.6 K/mm3 (4.0-10.0)
[2023-04-16 09:06] LABS: POTASSIUM 3.7 mmol/L (3.5-5.1)
[2023-04-16 09:07] LABS: CALCIUM 9.5 mg/dL (8.5-10.1)
[2023-04-16 09:11] LABS: CREATININE 2.5 mg/dL (0.55-1.3)
[2023-04-16 09:39] LABS: BLOOD UREA NITROGEN 48.1 mg/dL (7-18)
[2023-04-16] MEDS: ISOSORBIDE DINITRATE 10 MG TABLET GT SCH ×3 (10:28→19:45)
[2023-04-16] MEDS: FAMOTIDINE 20 MG/2.5 ML ORAL LIQUID PEG SCH (10:29)
[2023-04-16] MEDS: CARVEDILOL 25 MG TABLET (FP) GT SCH ×2 (10:29→22:25)
[2023-04-16] MEDS: FERROUS SO4 300 MG/5 ML ORAL SOLN UNIT DOSE CUPS PEG SCH (10:30)
[2023-04-16] MEDS: ZINC SULFATE 220 MG CAPSULE (FP) GT SCH ×4 (10:31→22:25)
[2023-04-16] MEDS: VITAMIN B COMP W-C 1 EA TABLET (NEPHRO-VITE) GT SCH (10:31)
[2023-04-16] MEDS: COLLAGENASE CLOSTRIDIUM HIST. 30 GRAMS TUBE TP SCH (11:16)
[2023-04-16] MEDS: ARTIFICIAL TEARS (POLYVINYL ALCOHOL) OPTH DROPS OU SCH ×2 (11:16→22:44)
[2023-04-16] MEDS ORDERED: VANCOMYCIN/WATER FOR INJ (PEG) 1,000 MG/200 ML BAG IVPB ONE (13:45)
[2023-04-16] MEDS ORDERED: SODIUM CHLORIDE 250 ML IV PRN (14:21)
[2023-04-16 14:50] VITALS: RESP 18
[2023-04-16] MEDS: AMINO ACIDS/PROTEIN HYDROLYS 30 ML LIQUID.PKT GT SCH ×2 (15:30→17:54)
[2023-04-16] MEDS: ACETAMINOPHEN 650 MG/20.3 ML ORAL SOLUTION (CUPS) PEG SCH (19:44)
[2023-04-16] MEDS ORDERED: MEROPENEM 500 MG VIAL (RESTRICTED TO ID) IVPB ONE ×2 (20:12→20:16)
[2023-04-16] MEDS: MEROPENEM 500 MG in DEXTROSE 5%-WATER 100 ML IVPB SCH (20:34)
[2023-04-17] MEDS: ACETAMINOPHEN 650 MG/20.3 ML ORAL SOLUTION (CUPS) PEG SCH ×4 (01:11→17:56)
[2023-04-17] MEDS: hydrALAZINE HCL 25 MG TABLET (FP) GT SCH ×3 (06:26→22:40)
[2023-04-17] MEDS: ISOSORBIDE DINITRATE 10 MG TABLET GT SCH ×3 (09:15→17:55)
[2023-04-17] MEDS: AMINO ACIDS/PROTEIN HYDROLYS 30 ML LIQUID.PKT GT SCH ×2 (09:15→17:56)
[2023-04-17] MEDS: CARVEDILOL 25 MG TABLET (FP) GT SCH ×2 (09:16→22:40)
[2023-04-17] MEDS: ARTIFICIAL TEARS (POLYVINYL ALCOHOL) OPTH DROPS OU SCH ×2 (09:16→22:40)
[2023-04-17] MEDS: FERROUS SO4 300 MG/5 ML ORAL SOLN UNIT DOSE CUPS PEG SCH ×2 (09:16→13:52)
[2023-04-17] MEDS: VITAMIN B COMP W-C 1 EA TABLET (NEPHRO-VITE) GT SCH ×2 (09:16→13:52)
[2023-04-17] MEDS: ZINC SULFATE 220 MG CAPSULE (FP) GT SCH ×4 (09:16→22:33)
[2023-04-17] MEDS: FAMOTIDINE 20 MG/2.5 ML ORAL LIQUID PEG SCH ×2 (09:16→13:52)
[2023-04-17] MEDS ORDERED: EPOETIN ALFA EPBX IVPUSH ONE (09:30)
[2023-04-17 10:07] LABS: BASO % 0.5 % (0-2.0); EOS % 4.4 % (0-4.5); HEMATOCRIT 22.2 % (35.4-49); LYMPH % 13.3 % (8-40); MCH 28.6 pg (25.7-33.7); MCHC 31.3 g/dl (32.0-35.9); MEAN CELL VOLUME 91.2 fl (80-96); MEAN PLT VOLUME 7.1 fl (7.5-11.1); MONO % 5.1 % (3.8-10.2); NEUT % 76.7 % (42.8-82.8); PLATELET COUNT 276 10^3/uL (134-434); RBC 2.44 M/mm3 (4.00-5.60); RDW 16.3 % (11.9-15.9); RETICULOCYTES 2.21 % (0.5-1.5); WHITE BLOOD COUNT 14.2 K/mm3 (4.0-10.0)
[2023-04-17 10:56] LABS: POTASSIUM 3.6 mmol/L (3.5-5.1)
[2023-04-17 11:02] LABS: BLOOD UREA NITROGEN 71.1 mg/dL (7-18); CALCIUM 10.2 mg/dL (8.5-10.1)
[2023-04-17 11:05] LABS: CREATININE 3.7 mg/dL (0.55-1.3); PHOSPHOROUS 4.4 mg/dL (2.5-4.9)
[2023-04-17 11:07] LABS: BILIRUBIN,TOTAL 0.4 mg/dL (0.2-1); TOT PROT 6.5 g/dl (6.4-8.2)
[2023-04-17 13:29] LABS: TOTAL IRON BINDING CAPACITY 150 ug/dL (250-450)
[2023-04-17 13:39] LABS: IRON SERUM 26 ug/dL (50-175)
[2023-04-17] MEDS: COLLAGENASE CLOSTRIDIUM HIST. 30 GRAMS TUBE TP SCH (13:50)
[2023-04-17] MEDS ORDERED: EPOETIN ALFA-EPBX 4,000 UNIT/ML VIAL SQ ONE (14:21)
[2023-04-17] MEDS: PANTOPRAZOLE SODIUM 40 MG VIAL IVPUSH SCH ×2 (15:55→22:33)
[2023-04-17] MEDS: MEROPENEM 500 MG in DEXTROSE 5%-WATER 100 ML IVPB SCH (20:47)
[2023-04-18] MEDS: ACETAMINOPHEN 650 MG/20.3 ML ORAL SOLUTION (CUPS) PEG SCH ×4 (01:56→19:38)
[2023-04-18] MEDS: hydrALAZINE HCL 25 MG TABLET (FP) GT SCH ×3 (06:31→22:47)
[2023-04-18] MEDS: AMINO ACIDS/PROTEIN HYDROLYS 30 ML LIQUID.PKT GT SCH ×2 (08:47→19:38)
[2023-04-18] MEDS: ISOSORBIDE DINITRATE 10 MG TABLET GT SCH ×3 (08:47→19:39)
[2023-04-18] MEDS: ZINC SULFATE 220 MG CAPSULE (FP) GT SCH ×4 (10:24→22:47)
[2023-04-18] MEDS: FAMOTIDINE 20 MG/2.5 ML ORAL LIQUID PEG SCH (10:24)
[2023-04-18] MEDS: FERROUS SO4 300 MG/5 ML ORAL SOLN UNIT DOSE CUPS PEG SCH (10:24)
[2023-04-18] MEDS: CARVEDILOL 25 MG TABLET (FP) GT SCH ×2 (10:24→22:47)
[2023-04-18] MEDS: VITAMIN B COMP W-C 1 EA TABLET (NEPHRO-VITE) GT SCH (10:24)
[2023-04-18] MEDS: PANTOPRAZOLE SODIUM 40 MG VIAL IVPUSH SCH ×2 (10:25→22:47)
[2023-04-18] MEDS: COLLAGENASE CLOSTRIDIUM HIST. 30 GRAMS TUBE TP SCH (10:28)
[2023-04-18] MEDS: ARTIFICIAL TEARS (POLYVINYL ALCOHOL) OPTH DROPS OU SCH ×2 (10:29→22:57)
[2023-04-18] MEDS ORDERED: VANCOMYCIN/WATER FOR INJ (PEG) 1,000 MG/200 ML BAG IVPB ONE (14:06)
[2023-04-18 16:50] LABS: HEMATOCRIT 21.6 % (35.4-49); MCH 28.8 pg (25.7-33.7); MCHC 31.3 g/dl (32.0-35.9); MEAN CELL VOLUME 91.7 fl (80-96); PLATELET COUNT 262 10^3/uL (134-434); RBC 2.35 M/mm3 (4.00-5.60); RDW 16.3 % (11.9-15.9); WHITE BLOOD COUNT 10.1 K/mm3 (4.0-10.0)
[2023-04-18 16:59] LABS: HEMOGLOBIN 6.8 GM/dL (11.7-16.9)
[2023-04-18 17:16] LABS: POTASSIUM 3.6 mmol/L (3.5-5.1)
[2023-04-18 17:18] LABS: CALCIUM 9.7 mg/dL (8.5-10.1)
[2023-04-18 17:19] LABS: BLOOD UREA NITROGEN 52.9 mg/dL (7-18); MAGNESIUM 2.6 mg/dL (1.8-2.4)
[2023-04-18 17:22] LABS: CREATININE 2.8 mg/dL (0.55-1.3); PHOSPHOROUS 3.6 mg/dL (2.5-4.9)
[2023-04-18 17:23] LABS: BILIRUBIN,TOTAL 0.3 mg/dL (0.2-1)
[2023-04-18 17:24] LABS: TOT PROT 6.3 g/dl (6.4-8.2)
[2023-04-18] MEDS: MEROPENEM 500 MG in DEXTROSE 5%-WATER 100 ML IVPB SCH (21:03)
[2023-04-19] MEDS: ACETAMINOPHEN 650 MG/20.3 ML ORAL SOLUTION (CUPS) PEG SCH ×4 (00:21→18:39)
[2023-04-19] MEDS: hydrALAZINE HCL 25 MG TABLET (FP) GT SCH ×3 (06:13→22:19)
[2023-04-19] MEDS ORDERED: EPOETIN ALFA-EPBX 4,000 UNIT/ML VIAL SQ ONE (07:39)
[2023-04-19] MEDS ORDERED: EPOETIN ALFA-EPBX 10,000 UNIT/ML VIAL IVPUSH ONE (07:39)
[2023-04-19 08:18] LABS: HEMOGLOBIN 8.9 GM/dL (11.7-16.9); MCH 29.8 pg (25.7-33.7); MCHC 32.8 g/dl (32.0-35.9); MEAN CELL VOLUME 90.7 fl (80-96); MEAN PLT VOLUME 7.5 fl (7.5-11.1); PLATELET COUNT 265 10^3/uL (134-434); RBC 2.98 M/mm3 (4.00-5.60); WHITE BLOOD COUNT 9.4 K/mm3 (4.0-10.0)
[2023-04-19 08:27] LABS: POTASSIUM 3.9 mmol/L (3.5-5.1)
[2023-04-19 08:30] LABS: CALCIUM 10.3 mg/dL (8.5-10.1)
[2023-04-19] MEDS: AMINO ACIDS/PROTEIN HYDROLYS 30 ML LIQUID.PKT GT SCH ×2 (08:30→18:21)
[2023-04-19] MEDS: ISOSORBIDE DINITRATE 10 MG TABLET GT SCH ×3 (08:30→18:25)
[2023-04-19 08:33] LABS: ALBUMIN 2.1 g/dl (3.4-5.0); BLOOD UREA NITROGEN 68.4 mg/dL (7-18)
[2023-04-19 08:34] LABS: MAGNESIUM 2.7 mg/dL (1.8-2.4)
[2023-04-19 08:36] LABS: CREATININE 3.3 mg/dL (0.55-1.3); PHOSPHOROUS 4.6 mg/dL (2.5-4.9)
[2023-04-19 08:38] LABS: TOT PROT 6.7 g/dl (6.4-8.2)
[2023-04-19 08:42] LABS: BILIRUBIN,TOTAL 0.5 mg/dL (0.2-1)
[2023-04-19] MEDS: ARTIFICIAL TEARS (POLYVINYL ALCOHOL) OPTH DROPS OU SCH ×2 (10:01→22:19)
[2023-04-19] MEDS: VITAMIN B COMP W-C 1 EA TABLET (NEPHRO-VITE) GT SCH (10:01)
[2023-04-19] MEDS: FAMOTIDINE 20 MG/2.5 ML ORAL LIQUID PEG SCH (10:01)
[2023-04-19] MEDS: ZINC SULFATE 220 MG CAPSULE (FP) GT SCH ×4 (10:01→22:19)
[2023-04-19] MEDS: CARVEDILOL 25 MG TABLET (FP) GT SCH ×2 (10:01→22:20)
[2023-04-19] MEDS: PANTOPRAZOLE SODIUM 40 MG VIAL IVPUSH SCH ×2 (10:02→22:19)
[2023-04-19] MEDS: FERROUS SO4 300 MG/5 ML ORAL SOLN UNIT DOSE CUPS PEG SCH (10:02)
[2023-04-19] MEDS: COLLAGENASE CLOSTRIDIUM HIST. 30 GRAMS TUBE TP SCH (10:03)
[2023-04-19] MEDS ORDERED: SODIUM CHLORIDE 250 ML IV PRN (16:55)
[2023-04-19] MEDS: MEROPENEM 500 MG in DEXTROSE 5%-WATER 100 ML IVPB SCH (19:44)
[2023-04-20] MEDS: ACETAMINOPHEN 650 MG/20.3 ML ORAL SOLUTION (CUPS) PEG SCH ×4 (00:36→18:14)
[2023-04-20] MEDS: hydrALAZINE HCL 25 MG TABLET (FP) GT SCH ×3 (06:11→22:47)
[2023-04-20] MEDS: ISOSORBIDE DINITRATE 10 MG TABLET GT SCH ×3 (08:38→18:14)
[2023-04-20 09:03] LABS: HEMATOCRIT 25.6 % (35.4-49); HEMOGLOBIN 8.4 GM/dL (11.7-16.9); MCH 29.5 pg (25.7-33.7); MCHC 32.8 g/dl (32.0-35.9); MEAN PLT VOLUME 7.4 fl (7.5-11.1); PLATELET COUNT 263 10^3/uL (134-434); RBC 2.85 M/mm3 (4.00-5.60); WHITE BLOOD COUNT 8.3 K/mm3 (4.0-10.0)
[2023-04-20] MEDS: BISACODYL 10 MG SUPP.RECT PR SCH (09:25)
[2023-04-20] MEDS: AMINO ACIDS/PROTEIN HYDROLYS 30 ML LIQUID.PKT GT SCH ×2 (09:37→18:14)
[2023-04-20] MEDS: FERROUS SO4 300 MG/5 ML ORAL SOLN UNIT DOSE CUPS PEG SCH (09:37)
[2023-04-20] MEDS: PANTOPRAZOLE SODIUM 40 MG VIAL IVPUSH SCH ×2 (09:37→22:47)
[2023-04-20] MEDS: CARVEDILOL 25 MG TABLET (FP) GT SCH ×2 (09:38→22:47)
[2023-04-20] MEDS: FAMOTIDINE 20 MG/2.5 ML ORAL LIQUID PEG SCH (09:38)
[2023-04-20] MEDS: ZINC SULFATE 220 MG CAPSULE (FP) GT SCH ×4 (09:38→22:47)
[2023-04-20] MEDS: VITAMIN B COMP W-C 1 EA TABLET (NEPHRO-VITE) GT SCH (09:38)
[2023-04-20] MEDS: ARTIFICIAL TEARS (POLYVINYL ALCOHOL) OPTH DROPS OU SCH ×2 (09:39→22:48)
[2023-04-20] MEDS: COLLAGENASE CLOSTRIDIUM HIST. 30 GRAMS TUBE TP SCH (09:40)
[2023-04-20 10:28] LABS: POTASSIUM 3.5 mmol/L (3.5-5.1)
[2023-04-20 10:33] LABS: CALCIUM 9.8 mg/dL (8.5-10.1)
[2023-04-20 10:34] LABS: BLOOD UREA NITROGEN 44.6 mg/dL (7-18); MAGNESIUM 2.5 mg/dL (1.8-2.4)
[2023-04-20 10:36] LABS: CREATININE 2.2 mg/dL (0.55-1.3)
[2023-04-20 10:37] LABS: PHOSPHOROUS 3.2 mg/dL (2.5-4.9)
[2023-04-20 10:38] LABS: BILIRUBIN,TOTAL 0.3 mg/dL (0.2-1); TOT PROT 6.4 g/dl (6.4-8.2)
[2023-04-20] MEDS: MEROPENEM 500 MG in DEXTROSE 5%-WATER 100 ML IVPB SCH (20:10)
[2023-04-21] MEDS: ACETAMINOPHEN 650 MG/20.3 ML ORAL SOLUTION (CUPS) PEG SCH ×5 (00:40→23:39)
[2023-04-21] MEDS: hydrALAZINE HCL 25 MG TABLET (FP) GT SCH ×3 (05:24→22:14)
[2023-04-21] MEDS: AMINO ACIDS/PROTEIN HYDROLYS 30 ML LIQUID.PKT GT SCH ×2 (08:19→17:44)
[2023-04-21] MEDS: ISOSORBIDE DINITRATE 10 MG TABLET GT SCH ×3 (08:19→17:44)
[2023-04-21 09:30] LABS: HEMATOCRIT 25.7 % (35.4-49); HEMOGLOBIN 8.5 GM/dL (11.7-16.9); MCH 30.2 pg (25.7-33.7); MCHC 33.2 g/dl (32.0-35.9); MEAN CELL VOLUME 90.9 fl (80-96); MEAN PLT VOLUME 7.3 fl (7.5-11.1); PLATELET COUNT 266 10^3/uL (134-434); RBC 2.83 M/mm3 (4.00-5.60); RDW 16.1 % (11.9-15.9); WHITE BLOOD COUNT 7.3 K/mm3 (4.0-10.0)
[2023-04-21 10:07] LABS: POTASSIUM 3.5 mmol/L (3.5-5.1)
[2023-04-21 10:14] LABS: ALBUMIN 1.9 g/dl (3.4-5.0); BLOOD UREA NITROGEN 66.7 mg/dL (7-18); CALCIUM 9.8 mg/dL (8.5-10.1); MAGNESIUM 2.8 mg/dL (1.8-2.4)
[2023-04-21 10:17] LABS: CREATININE 3.2 mg/dL (0.55-1.3); PHOSPHOROUS 3.8 mg/dL (2.5-4.9)
[2023-04-21] MEDS: PANTOPRAZOLE SODIUM 40 MG VIAL IVPUSH SCH ×2 (10:17→22:14)
[2023-04-21 10:19] LABS: BILIRUBIN,TOTAL 0.4 mg/dL (0.2-1); TOT PROT 6.3 g/dl (6.4-8.2)
[2023-04-21] MEDS: ARTIFICIAL TEARS (POLYVINYL ALCOHOL) OPTH DROPS OU SCH ×2 (10:20→22:14)
[2023-04-21] MEDS: CARVEDILOL 25 MG TABLET (FP) GT SCH ×2 (10:20→22:14)
[2023-04-21] MEDS: BISACODYL 10 MG SUPP.RECT PR SCH (10:20)
[2023-04-21] MEDS: FERROUS SO4 300 MG/5 ML ORAL SOLN UNIT DOSE CUPS PEG SCH (10:20)
[2023-04-21] MEDS: COLLAGENASE CLOSTRIDIUM HIST. 30 GRAMS TUBE TP SCH (10:20)
[2023-04-21] MEDS: VITAMIN B COMP W-C 1 EA TABLET (NEPHRO-VITE) GT SCH (10:20)
[2023-04-21] MEDS: ZINC SULFATE 220 MG CAPSULE (FP) GT SCH ×4 (10:22→22:14)
[2023-04-21] MEDS ORDERED: BISACODYL 10 MG SUPP.RECT PR PRN (12:10)
[2023-04-21] MEDS: MEROPENEM 500 MG in DEXTROSE 5%-WATER 100 ML IVPB SCH (21:22)
[2023-04-22] MEDS: ACETAMINOPHEN 650 MG/20.3 ML ORAL SOLUTION (CUPS) PEG SCH ×3 (06:32→17:23)
[2023-04-22] MEDS: hydrALAZINE HCL 25 MG TABLET (FP) GT SCH ×3 (06:32→21:08)
[2023-04-22] MEDS ORDERED: SODIUM CHLORIDE 250 ML IV PRN (06:36)
[2023-04-22] MEDS: ISOSORBIDE DINITRATE 10 MG TABLET GT SCH ×3 (07:26→17:23)
[2023-04-22] MEDS: AMINO ACIDS/PROTEIN HYDROLYS 30 ML LIQUID.PKT GT SCH ×2 (07:27→17:23)
[2023-04-22] MEDS ORDERED: EPOETIN ALFA-EPBX 4,000 UNIT/ML VIAL SQ ONE (09:00)
[2023-04-22 09:05] LABS: HEMOGLOBIN 8.1 GM/dL (11.7-16.9); MCH 30.5 pg (25.7-33.7); MCHC 33.7 g/dl (32.0-35.9); MEAN CELL VOLUME 90.3 fl (80-96); MEAN PLT VOLUME 7.2 fl (7.5-11.1); PLATELET COUNT 263 10^3/uL (134-434); RBC 2.66 M/mm3 (4.00-5.60); WHITE BLOOD COUNT 7.8 K/mm3 (4.0-10.0)
[2023-04-22 09:16] LABS: POTASSIUM 3.5 mmol/L (3.5-5.1)
[2023-04-22 09:18] LABS: ALBUMIN 1.9 g/dl (3.4-5.0); CALCIUM 9.9 mg/dL (8.5-10.1)
[2023-04-22 09:21] LABS: CREATININE 3.9 mg/dL (0.55-1.3); PHOSPHOROUS 4.6 mg/dL (2.5-4.9)
[2023-04-22 09:23] LABS: BILIRUBIN,TOTAL 0.3 mg/dL (0.2-1); TOT PROT 6.2 g/dl (6.4-8.2)
[2023-04-22 09:43] LABS: BLOOD UREA NITROGEN 91.8 mg/dL (7-18)
[2023-04-22] MEDS: CARVEDILOL 25 MG TABLET (FP) GT SCH ×2 (11:46→21:08)
[2023-04-22] MEDS: FERROUS SO4 300 MG/5 ML ORAL SOLN UNIT DOSE CUPS PEG SCH (11:46)
[2023-04-22] MEDS: VITAMIN B COMP W-C 1 EA TABLET (NEPHRO-VITE) GT SCH (11:50)
[2023-04-22] MEDS: ZINC SULFATE 220 MG CAPSULE (FP) GT SCH ×4 (11:50→21:08)
[2023-04-22] MEDS: ARTIFICIAL TEARS (POLYVINYL ALCOHOL) OPTH DROPS OU SCH ×2 (11:57→21:09)
[2023-04-22] MEDS: PANTOPRAZOLE SODIUM 40 MG VIAL IVPUSH SCH ×2 (12:06→21:09)
[2023-04-22] MEDS: COLLAGENASE CLOSTRIDIUM HIST. 30 GRAMS TUBE TP SCH (15:08)
[2023-04-22] MEDS ORDERED: VANCOMYCIN/WATER FOR INJ (PEG) 1,000 MG/200 ML BAG IVPB ONE (16:45)
[2023-04-22] MEDS: MEROPENEM 500 MG in DEXTROSE 5%-WATER 100 ML IVPB SCH (20:50)
[2023-04-23] MEDS: ACETAMINOPHEN 650 MG/20.3 ML ORAL SOLUTION (CUPS) PEG SCH ×3 (00:30→11:51)
[2023-04-23] MEDS: hydrALAZINE HCL 25 MG TABLET (FP) GT SCH ×2 (05:42→13:17)
[2023-04-23 08:49] LABS: POTASSIUM 3.6 mmol/L (3.5-5.1)
[2023-04-23 08:51] LABS: CALCIUM 9.8 mg/dL (8.5-10.1)
[2023-04-23 08:52] LABS: ALBUMIN 1.9 g/dl (3.4-5.0); MAGNESIUM 2.6 mg/dL (1.8-2.4)
[2023-04-23 08:55] LABS: CREATININE 2.8 mg/dL (0.55-1.3); PHOSPHOROUS 3.3 mg/dL (2.5-4.9)
[2023-04-23 08:56] LABS: BILIRUBIN,TOTAL 0.4 mg/dL (0.2-1)
[2023-04-23 08:57] LABS: TOT PROT 6.1 g/dl (6.4-8.2)
[2023-04-23 08:58] LABS: BLOOD UREA NITROGEN 56.1 mg/dL (7-18)
[2023-04-23] MEDS: ISOSORBIDE DINITRATE 10 MG TABLET GT SCH ×2 (09:06→13:20)
[2023-04-23] MEDS: AMINO ACIDS/PROTEIN HYDROLYS 30 ML LIQUID.PKT GT SCH (09:06)
[2023-04-23] MEDS: ZINC SULFATE 220 MG CAPSULE (FP) GT SCH ×2 (10:17→13:18)
[2023-04-23] MEDS: CARVEDILOL 25 MG TABLET (FP) GT SCH (10:17)
[2023-04-23] MEDS: VITAMIN B COMP W-C 1 EA TABLET (NEPHRO-VITE) GT SCH (10:17)
[2023-04-23] MEDS: FERROUS SO4 300 MG/5 ML ORAL SOLN UNIT DOSE CUPS PEG SCH (10:17)
[2023-04-23] MEDS: PANTOPRAZOLE SODIUM 40 MG VIAL IVPUSH SCH (10:17)
[2023-04-23] MEDS: COLLAGENASE CLOSTRIDIUM HIST. 30 GRAMS TUBE TP SCH (10:18)
[2023-04-23] MEDS: ARTIFICIAL TEARS (POLYVINYL ALCOHOL) OPTH DROPS OU SCH (10:19)
[2023-04-23 11:06] VITALS: PULSE 68
[2023-04-23] MEDS ORDERED: EPOETIN ALFA-EPBX 4,000 UNIT/ML VIAL SQ ONE (15:25)
[2023-04-23] MEDS ORDERED: SODIUM CHLORIDE 250 ML IV PRN (15:25)
[2023-04-23 15:32] VITALS: BP 103/62; TEMP 98.2
== END 2023-04-23 16:55 | DRG 673 ==
LOC: JER 21:52 → JERBED 22:17 → INTOOBSV 22:17 → UNDOADMOB 22:17 → JERBED 22:37 → UNDOADMOB 22:37 → JERBED 03-30 03:10 → UNDOADMOB 03-30 03:10 → JERBED 03-30 04:23 → J4S 03-30 04:23 → OBSVTOIN 03-31 18:17 → J6S 04-03 13:32
PROVIDERS: ADMIT Internal Medicine; ATTEND Internal Medicine
PROC: 5A1D70Z Performance of Urinary Filtration, Intermittent, Less than 6 Hours Per Day (ICD-10-PCS; 2023-03-30)
PROC: 0JB70ZZ Excision of Back Subcutaneous Tissue and Fascia, Open Approach (ICD-10-PCS; 2023-04-02)
PROC: 05HY33Z Insertion of Infusion Device into Upper Vein, Percutaneous Approach (ICD-10-PCS; 2023-04-05)
PROC: 05PYX3Z Removal of Infusion Device from Upper Vein, External Approach (ICD-10-PCS; 2023-04-05)
PROC: 5A1D70Z Performance of Urinary Filtration, Intermittent, Less than 6 Hours Per Day (ICD-10-PCS; 2023-04-10)
PROC: 0JBR3ZX Excision of Left Foot Subcutaneous Tissue and Fascia, Percutaneous Approach, Diagnostic (ICD-10-PCS; 2023-04-11)
PROC: 0QBM3ZX Excision of Left Tarsal, Percutaneous Approach, Diagnostic (ICD-10-PCS; principal; 2023-04-11 15:00)
PROC: B41G0ZZ Fluoroscopy of Left Lower Extremity Arteries using High Osmolar Contrast (ICD-10-PCS; 2023-04-12)
PROC: B40GYZZ Plain Radiography of Left Lower Extremity Arteries using Other Contrast (ICD-10-PCS; 2023-04-12)
PROC: B40DYZZ Plain Radiography of Aorta and Bilateral Lower Extremity Arteries using Other Contrast (ICD-10-PCS; 2023-04-12)
PROC: 04HL33Z Insertion of Infusion Device into Left Femoral Artery, Percutaneous Approach (ICD-10-PCS; 2023-04-12)
PROC: 5A1D70Z Performance of Urinary Filtration, Intermittent, Less than 6 Hours Per Day (ICD-10-PCS; 2023-04-15)
PROC: 30233N1 Transfusion of Nonautologous Red Blood Cells into Peripheral Vein, Percutaneous Approach (ICD-10-PCS; 2023-04-19)
PROC: 5A1D70Z Performance of Urinary Filtration, Intermittent, Less than 6 Hours Per Day (ICD-10-PCS; 2023-04-19)
PROC: 05HN33Z Insertion of Infusion Device into Left Internal Jugular Vein, Percutaneous Approach (ICD-10-PCS; 2023-04-23)
PROC: B544ZZA Ultrasonography of Left Jugular Veins, Guidance (ICD-10-PCS; 2023-04-23)
DX: T82.49XA Other complication of vascular dialysis catheter, initial encounter (principal); L89.154 Pressure ulcer of sacral region, stage 4; N18.6 End stage renal disease; R53.2 Functional quadriplegia; I13.2 Hypertensive heart and chronic kidney disease with heart failure and with stage 5 chronic kidney disease, or end stage renal disease; I50.32 Chronic diastolic (congestive) heart failure; J96.10 Chronic respiratory failure, unspecified whether with hypoxia or hypercapnia; J98.11 Atelectasis; L97.428 Non-pressure chronic ulcer of left heel and midfoot with other specified severity; I96 Gangrene, not elsewhere classified; M86.8X7 Other osteomyelitis, ankle and foot; M86.9 Osteomyelitis, unspecified; R94.5 Abnormal results of liver function studies; I69.991 Dysphagia following unspecified cerebrovascular disease; R13.10 Dysphagia, unspecified; D72.829 Elevated white blood cell count, unspecified; F03.90 Unspecified dementia, unspecified severity, without behavioral disturbance, psychotic disturbance, mood disturbance, and anxiety; D63.8 Anemia in other chronic diseases classified elsewhere; B96.20 Unspecified Escherichia coli [E. coli] as the cause of diseases classified elsewhere; B95.61 Methicillin susceptible Staphylococcus aureus infection as the cause of diseases classified elsewhere; B96.4 Proteus (mirabilis) (morganii) as the cause of diseases classified elsewhere; B95.2 Enterococcus as the cause of diseases classified elsewhere; I77.1 Stricture of artery; Z99.81 Dependence on supplemental oxygen; Z93.0 Tracheostomy status; Z99.2 Dependence on renal dialysis; Y84.8 Other medical procedures as the cause of abnormal reaction of the patient, or of later complication, without mention of misadventure at the time of the procedure
CPT/HCPCS: 0241U-QW; 36415; 36430; 36558; 71045-TC-FY; 73630-TC-LT; 74177-TC; 76000-TC-FY; 76705-TC; 80048; 80053; 82272; 82308; 82607; 82746; 82803; 82962; 83540; 83550; 83735; 84100; 85025; 85027; 85045; 85610; 85651; 85730; 86140; 86705; 86707; 86803; 86850; 86900; 86901; 86922; 87040; 87070; 87075; 87077; 87186; 87205; 87340; 87350; 87389; 87517; 88304-TC; 93005; 93010; 93306-TC; 93926-TC; 94760; 99285-25; C1750; C1760; C1769; G0378; G0480; J1644; J2997; P9058; Q5106; Q9967